=== PATIENT | male | born 1995 | race Hispanic/Latino ===

== ENCOUNTER 2019-11-02 20:26 | Emergency (ER) | payer SELFPAY ==
--- NOTE | 2019-11-02 21:56 | NUR ---
PT RESTING QUIETLY IN BED C EYES CLOSED. NO DISTRESS NOTED. RESP EVEN AND UNLABORED ON RA.
--- NOTE | 2019-11-02 22:05 | Emergency Department Note ---
History of Present Illnes History of Present Illness Chief Complaint: Alcohol Abuse/Intoxication History of Present Illness This is a 24 year old male arrives to the ED after being found intoxicated in his neighbor's backyard. Patient admits to drinking alcohol multiple 12 packs- denies any complaints. Patient states he just wishes to sleep. 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 Any updates have been documented here. Past Medical History Recent Fever: No Clinical Suspicion of Infectio: No New/Unexplained Change in Ment: No Past Medical History: None Past Surgical History: None Social History Smoking Cessation: Former smoker Counseling Performed: No Alcohol Use: Daily Any Illegal Drug Use: Yes (MARIJUANA) TB Exposure/Symptoms: No Physically hurt or threatened: No Family History Family history of heart diseas: No Other Last Tetanus: unknown Any Pre-Existing Lines (PICC,: No Is patient up to date on immun: Yes Last Flu: UNK Last Pneumovax: UNK Review of Systems Review of Systems Constitutional: Reports as per HPI EENTM: Reports no symptoms Cardiovascular: Reports no symptoms Respiratory: Reports no symptoms Gastrointestinal: Reports no symptoms Genitourinary: Reports no symptoms Musculoskeletal: Reports no symptoms Integumentary: Reports no symptoms Neurological: Reports no symptoms Psychological: Reports as per HPI Endocrine: Reports no symptoms Hematological/Lymphatic: Reports no symptoms Review of other systems: All other systems negative Physical Exam Related Data Allergies: Coded Allergies: No Known Allergies (Unverified , 11/02/19) Triage Vital Signs Vital Signs Date Time Temp Pulse Resp B/P (MAP) Pulse Ox O2 Delivery O2 Flow Rate FiO2 11/02/19 20:45 98.6 88 20 98/88 100 Physical Exam CONSTITUTIONAL Constitutional: Present well-developed, Present well-nourished, Present other (EtOH on breath) HENT HENT: Present normocephalic, Present atraumatic, Present oropharynx clear/moist, Present nose normal HENT L/R: Present left ext ear normal, Present right ext ear normal EYES Eyes: Reports PERRL, Reports conjunctivae normal NECK Neck: Present ROM normal PULMONARY Pulmonary: Present effort normal, Present breath sounds normal CARDIOVASCULAR Cardiovascular: Present regular rhythm, Present heart sounds normal, Present capillary refill normal, Present normal rate GASTROINTESTINAL Abdominal: Present soft, Present nontender, Present bowel sounds normal GENITOURINARY Genitourinary: Present exam deferred SKIN Skin: Present warm, Present dry MUSCULOSKELETAL Musculoskeletal: Present ROM normal NEUROLOGICAL Neurological: Present alert, Present no gross motor or sensory deficits PSYCHOLOGICAL Psychological: Present mood/affect normal, Present judgement normal Assessment & Plan Medical Decision Making MDM 24-year-old male arrives to the ED for alcohol intoxication. Patient with no signs of trauma. Patient was monitored in the ED until he sobered up and was discharged home. Patient ambulatory with a steady gait discharged home with family. Assessment & Plan Final Impression: (1) Alcohol intoxication Depart Disposition: HOME, SELF-CARE Last Vital Signs Date Time Temp Pulse Resp B/P (MAP) Pulse Ox O2 Delivery O2 Flow Rate FiO2 11/02/19 20:45 98.6 88 20 98/88 100 MELLISA ARBOLEDA DO Nov 02, 2019 22:05
[2019-11-03 01:31] VITALS: BP 110/94
== END 2019-11-03 01:41 | disposition home or self-care (01) ==
LOC: ER 20:26
DX: F10.129 Alcohol abuse with intoxication, unspecified (principal)
CPT/HCPCS: 99283